=== PATIENT | male | born 1985 ===

== ENCOUNTER 2021-02-17 05:40 | Day surgery (SDC) | payer OTHER ==
[2021-02-17] MEDS ORDERED: CARAFATE1 GM/10 ML PO (09:13)
[2021-02-17] MEDS ORDERED: NEXIUM 24HR20 M1 PO (09:13)
== END 2021-02-17 10:50 | disposition home or self-care (01) ==
LOC: AMB-ENDOS 05:40
PROVIDERS: ATTEND Surgery
DX: K29.50 Unspecified chronic gastritis without bleeding (principal); K44.9 Diaphragmatic hernia without obstruction or gangrene